=== PATIENT | female | born 1990 | race Native Hawaiian/Other Pacific Islander ===

== ENCOUNTER 2020-06-17 13:09 | Outpatient (CLI) | payer BC, OTHER | END 2020-06-17 22:00 | disposition home or self-care (01) | LOC: LAB 13:09 | PROVIDERS: ATTEND Internal Medicine | DX: R51.9 Headache, unspecified (principal); R09.81 Nasal congestion; J02.9 Acute pharyngitis, unspecified; Z20.828 Contact with and (suspected) exposure to other viral communicable diseases | CPT/HCPCS: 87635; G2023; U0003 ==